=== PATIENT | female | born 1990 | race Caucasian/White ===

== ENCOUNTER 2024-12-02 22:01 | Emergency (ER) | payer SELFPAY ==
[~2024-12-02] VITALS: Ht 160 cm; Wt 102.0 kg
[2024-12-02 22:25] VITALS: O2SAT 100
[2024-12-03] MEDS ORDERED: NAPR-1495 MT (02:23)
[2024-12-03 02:45] VITALS: BP 122/76; PULSE 62; RESP 15; TEMP 36.4; O2SAT 100
== END 2024-12-03 02:45 | disposition home or self-care (01) ==
LOC: ER 22:01
DX: S06.0XAA Concussion with loss of consciousness status unknown, initial encounter (principal); Z79.899 Other long term (current) drug therapy; Z98.890 Other specified postprocedural states; Z88.0 Allergy status to penicillin; W19.XXXA Unspecified fall, initial encounter; Y93.89 Activity, other specified; Y92.89 Other specified places as the place of occurrence of the external cause; Y99.8 Other external cause status
CPT/HCPCS: 99284